=== PATIENT | female | born 1935 | race Caucasian/White ===

== ENCOUNTER → 2023-09-03 08:56 | Outpatient (CLI) | payer MEDICARE, SELFPAY ==
--- NOTE | 2023-09-03 09:00 | DI.CT.S_ITS ---
PROCEDURE: CT ABDOMEN PELVIS W CON INDICATIONS: Peritoneal abscess / duodenal ulcer with perforation TECHNIQUE: After the administration of intravenous contrast, axial sections acquired from the lung bases to the pubic symphysis. Coronal and sagittal reformats were performed. For radiation dose reduction, the following was used: automated exposure control, adjustment of mA and/or kV according to patient size. COMPARISON: Outside Facility, , CT ABDOMEN/PELVIS WITH CONTRAST, 08/11/2023, 8:37. FINDINGS: Image quality: Diagnostic. Lower Chest: 1.1 centimeter nodularity in the left lower breast (series 2, image 1). Right breast implant. Partially visualized port terminates in the cavoatrial junction. Senescent changes in the lung bases. Small hiatal hernia. ABDOMEN: Liver: No solid mass. Gallbladder: No radiopaque gallstones or wall thickening. Biliary ducts: No biliary dilation. Pancreas: No ductal dilation. 5 millimeter cystic lesion in the pancreatic body (series 2, image 27). Spleen: Size is within normal limits. Adrenal Glands: No adrenal nodules. Kidneys and Ureters: No hydronephrosis. No solid mass. No complex renal cystic lesion which requires follow up. Stomach and Bowel: Normal colonic caliber, without significant wall thickening. Duodenal diverticulum. Colonic diverticulosis without evidence of diverticulitis. Peritoneum: The collection along the posterior margin of the liver measures 2.3 x 1.4 centimeters, previously 3.7 x 2.0 centimeter (series 2, image 21). The collection appears more solid on today's examination Ventral Wall: No significant ventral hernia. Laparotomy scar. Abdominal Nodes: No retroperitoneal or mesenteric adenopathy by size criteria. Vessels: Aorta and inferior vena cava are normal in size. PELVIS: Pelvic Organs: Unremarkable. Bladder: No bladder wall thickening, accounting for underdistention. Pelvic Nodes: No enlarged lymph nodes. Miscellaneous: No inguinal hernias are seen. Calcified injection granulomas overlying the gluteal musculature. Bones: No aggressive osseous abnormality. Convex left scoliosis. IMPRESSION: Laparotomy, with resolved anterior approach drain. The collection along the posterior margin of the right hepatic lobe has decreased in size, measuring 2.3 x 1.4 centimeter, previously 3.7 x 2.0 centimeter. Moderate duodenal diverticulum. 5 millimeter cystic lesion within the pancreatic body, presumably a side branch IPMN. Consider 2 year follow-up with MRI, per consensus guidelines. 1.1 centimeter nodularity in the left lower breast. Recommend dedicated workup at a diagnostic breast Center, if not performed recently. Dictated by: Jalil Cabrera M.D. on 09/03/2023 at 12:32 Approved by: Jalil Cabrera M.D. on 09/03/2023 at 13:19
[2023-09-03 09:59] LABS: Estimated Glomerular Filt Rate > 60 mL/min (>60)
== END ==
PROVIDERS: Radiology Diagnostic Radiology; Referring Provider Internal Medicine; Visit Provider Internal Medicine
DX: K65.1 Peritoneal abscess (principal); K26.5 Chronic or unspecified duodenal ulcer with perforation; K57.10 Diverticulosis of small intestine without perforation or abscess without bleeding; K86.2 Cyst of pancreas; N63.25 Unspecified lump in the left breast, overlapping quadrants; K44.9 Diaphragmatic hernia without obstruction or gangrene
CPT/HCPCS: 36415; 74177; 82565; Q9967